=== PATIENT | female | born 1990 | race African-American/Black ===

== ENCOUNTER 2018-07-15 14:38 | Emergency (ER) | payer OTHER ==
[~2018-07-15] VITALS: Ht 160 cm; Wt 73.6 kg
[2018-07-15 15:53] LABS: HEMATOCRIT 38.4 % (37.0-47.0); HEMOGLOBIN 13.6 g/dl (12.0-16.0); IMMATURE GRANULOCYTES 0.3 % (0.0-5.0); MEAN CELL VOLUME 87.9 fL CALC (80.0-100.0); MEAN CORPUSCULAR HGB 31.1 pG CALC (26.0-32.0); MEAN CORPUSCULAR HGB CONC 35.4 g/L CALC (32.0-36.0); NEUT# 3.14 thou/uL (2.00-7.15); RED BLOOD COUNT 4.37 mill/uL (4.20-5.60); RED CELL DISTRI WIDTH 11.5 % (11.5-15.5)
[2018-07-15 16:24] LABS: ALBUMIN 4.7 g/dL (3.2-5.0); ALKALINE PHOSPHATASE 62 u/l (38-126); ANION GAP 13 (6-22 (CALC)); BILIRUBIN, TOTAL 0.9 mg/dL (0.0-1.4); BUN 8 mg/dL (7-17); BUN/CREATININE RATIO 12 (12-20 (CALC)); CARBON DIOXIDE 26 mmol/l (22-30); CHLORIDE 103 mmol/l (95-108); CREATININE 0.7 mg/dL (0.5-1.0); GFR > 60 ML/MIN (>=60 (CALC)); GFR FOR AFR.AMER. > 60 ML/MIN (>=60 (CALC)); LIPASE 84 u/l (23-300); POTASSIUM 3.9 mmol/l (3.5-5.1); SGOT/AST 37 u/l (14-36); SODIUM 138 mmol/l (137-146); TOTAL PROTEIN 7.8 g/dL (6.3-8.2)
[2018-07-15] MEDS ORDERED: PROTONIX40 M2 PO (17:08)
[2018-07-15 17:12] VITALS: BP 119/76
== END 2018-07-15 17:19 | disposition home or self-care (01) ==
LOC: ED 14:38
PROVIDERS: Emergency Medicine
DX: R07.89 Other chest pain (principal); F17.200 Nicotine dependence, unspecified, uncomplicated